=== PATIENT | female | born 1940 | race Caucasian/White ===

== ENCOUNTER 2020-01-15 09:30 | Outpatient (CLI) | payer MEDICARE, SELFPAY ==
[2020-01-15 10:06] LABS: Hematocrit 34.5 % (37.0-47.0); Hemoglobin 11.2 g/dL (12.0-15.0); Immature Reticulocyte Fraction 16.6 % (3.0-15.9); Mean Corpuscular HGB Conc 32.5 g/dl (32-36); Mean Corpuscular Hemoglobin 29.2 pg (26-34); Mean Corpuscular Volume 90.1 fl (80-100); Mean Platelet Volume 10.3 fl (7.4-10.4); Platelet Count Result 366 k/mm3 (150-375); Red Blood Count 3.83 M/mm3 (4.2-5.4); Red Cell Distribution Width 13.8 % (11.5-14.5); Reticulocyte Hemoglobin Conten 31.2 pg (28.2-35.7); Reticulocyte Percent 1.41 % (0.7-4.3); Reticulocytes Absolute 0.05 B/L (32.2-175.7); White Blood Count 5.2 K/mm3 (4.5-10.0)
[2020-01-15 10:21] LABS: Alanine Aminotransferase 19 U/L (4-35); Albumin Level 4.6 g/dL (3.5-5.1); Alkaline Phosphatase 74 U/L (38-126); Anion Gap 11 mmol/L (8-16); Aspartate Amino Transferase 23 U/L (14-36); Bilirubin,Total 0.3 mg/dL (0.2-1.3); Blood Urea Nitrogen 32 mg/dL (7-17); Calcium 9.4 mg/dL (8.4-10.2); Carbon Dioxide 24 mmol/L (22-30); Chloride 103 mmol/L (98-107); Cholesterol 154 mg/dL (0-200); Estimated Glomerular Filt Rate 40; Glucose 98 mg/dL (65-105); HDL Direct 36 mg/dL; Potassium 4.5 mmol/L (3.4-5.0); Sodium 138 mmol/L (137-145); Triglycerides 172 mg/dL (<150)
[2020-01-15 10:31] LABS: LDL Cholesterol Direct 72 mg/dL
== END 2020-01-15 09:31 | disposition home or self-care (01) ==
PROVIDERS: PCP Family Medicine; Visit Provider Nurse Practitioner Family
DX: I10 Essential (primary) hypertension (principal); D64.9 Anemia, unspecified; E78.5 Hyperlipidemia, unspecified
CPT/HCPCS: 36415; 80053; 80061; 82728; 85027; 85046

== ENCOUNTER 2020-07-11 15:01 | Outpatient (CLI) | payer MEDICARE, SELFPAY | END 2020-07-11 15:02 | disposition home or self-care (01) | LOC: ANHCOVIDVC 15:02 | PROVIDERS: PCP Family Medicine | DX: Z23 Encounter for immunization (principal) | CPT/HCPCS: 0001A; 91300 ==

== ENCOUNTER 2020-08-01 14:54 | Outpatient (CLI) | payer MEDICARE, SELFPAY | END 2020-08-01 14:55 | disposition home or self-care (01) | LOC: ANHCOVIDVC 14:54 | PROVIDERS: PCP Family Medicine | DX: Z23 Encounter for immunization (principal) | CPT/HCPCS: 0002A; 91300 ==

== ENCOUNTER 2021-01-23 09:09 | Outpatient (CLI) | payer MEDICARE, SELFPAY ==
[2021-01-23 09:33] LABS: Basophils Absolute Auto 0.1 K/mm3 (0.0-0.1); Basophils Percent Auto 1.4 % (0.2-1.2); Eosinophils Absolute Auto 0.4 K/mm3 (0-0.3); Eosinophils Percent Auto 5.4 % (0-4.4); Immature Granulocyte Absolute 0.04 K/mm3 (0.00-0.031); Immature Granulocyte Percent A 0.6 % (0-0.5); Lymphocytes Absolute Auto 1.45 K/mm3 (0.9-3.2); Lymphocytes Percent Auto 21.8 % (18.3-44.2); Mean Corpuscular HGB Conc 32.4 g/dl (32-36); Mean Corpuscular Hemoglobin 29.9 pg (26-34); Mean Corpuscular Volume 92.3 fl (80-100); Mean Platelet Volume 10.8 fl (7.4-10.4); Monocytes Absolute Auto 0.8 K/mm3 (0.1-0.6); Monocytes Percent Auto 11.4 % (2.6-8.5); Neutrophils Absolute Auto 3.9 K/mm3 (1.3-6.7); Neutrophils Percent Auto 59.4 % (45.5-73.1); Platelet Count Result 286 k/mm3 (150-375); Red Blood Count 4.01 M/mm3 (4.2-5.4); White Blood Count 6.6 K/mm3 (4.5-10.0)
[2021-01-23 09:43] LABS: Alanine Aminotransferase 15 U/L (4-35); Albumin Level 4.6 g/dL (3.5-5.1); Alkaline Phosphatase 73 U/L (38-126); Anion Gap 14 mmol/L (8-16); Aspartate Amino Transferase 23 U/L (14-36); Bilirubin,Total 0.3 mg/dL (0.2-1.3); Blood Urea Nitrogen 36 mg/dL (7-17); Carbon Dioxide 21 mmol/L (22-30); Chloride 105 mmol/L (98-107); Cholesterol 278 mg/dL (0-200); Estimated Glomerular Filt Rate 31; Glucose 105 mg/dL (65-110); HDL Direct 38 mg/dL; Potassium 4.1 mmol/L (3.4-5.0); Sodium 140 mmol/L (137-145); Triglycerides 237 mg/dL (<150)
[2021-01-23 09:54] LABS: LDL Cholesterol Direct 146 mg/dL
[2021-01-23 10:16] LABS: Vitamin D 25 Hydroxy 52.9 ng/mL
== END 2021-01-23 09:10 | disposition home or self-care (01) ==
LOC: ANHLAB 09:12
PROVIDERS: PCP Nurse Practitioner Family; Visit Provider Family Medicine
DX: E78.5 Hyperlipidemia, unspecified (principal); E55.9 Vitamin D deficiency, unspecified; I10 Essential (primary) hypertension; Z00.00 Encounter for general adult medical examination without abnormal findings
CPT/HCPCS: 36415; 80053; 80061; 82306; 84443; 85025

== ENCOUNTER 2021-03-07 12:53 | Outpatient (CLI) | payer MEDICARE, SELFPAY ==
--- NOTE | ~2021-03-07 | DEXA_ITS ---
Bone Density Report Name: Maria Del Carmen Buchanan Age: 80 Sex: Female Ethnicity: White Date of : 1940 Indication: osteopenia; monitoring treatment; height loss; prior fracture; Referring Provider: Mert Wayne Study: Bone densitometry was performed. Exam Date: March 07, 2021 Accession number: [id number] Bone Density: Region BMD T-score Z-score Classification AP Spine (L1, L2) 0.868 -1.0 1.5 Normal Femoral Neck (Left) 0.577 -2.5 -0.2 Osteoporosis Total Hip (Left) 0.681 -2.1 -0.1 Osteopenia Total Hip Bilateral Avg 0.656 -2.3 -0.3 Osteopenia Femoral Neck (Right) 0.550 -2.7 -0.4 Osteoporosis Total Hip (Right) 0.631 -2.6 -0.5 Osteoporosis World Health Organization criteria for BMD impression classify patients as: Normal (T-score at or above -1.0), Osteopenia (T-score between -1.0 and -2.5), or Osteoporosis (T-score at or below -2.5). 10-year Fracture Risk: FRAX not reported because: Some T-score for Spine Total or Hip Total or Femoral Neck at or below -2.5 Treated for osteoporosis Previous Exams: Region Exam Age BMD T-score BMD Change BMD Change Date g/cm2 vs Baseline vs Previous AP Spine(L1, L2) 03/07/2021 80 0.868 -1.0 0.147(20.4%)* 0.079(9.9%)* 01/23/2019 78 0.789 -1.7 0.069(9.5%)* 0.069(9.5%)* 05/24/2016 75 0.721 -2.3 Total Hip(Left) 03/07/2021 80 0.681 -2.1 0.009(1.3%) -0.032(-4.5%)* 01/23/2019 78 0.713 -1.9 0.041(6.0%)* 0.041(6.0%)* 05/24/2016 75 0.672 -2.2 Total Hip(Right) 03/07/2021 80 0.631 -2.6 -0.005(-0.8%) -0.024(-3.7%) 01/23/2019 78 0.654 -2.4 0.019(2.9%) 0.019(2.9%) 05/24/2016 75 0.636 -2.5 *Denotes significance at 95% confidence level, LSC for AP Spine = 0.022 g/cm2, LSC for Total Hip = 0.027 g/cm2 Clinical Information Provided by Patient: Has had a low trauma fracture Is being treated for osteoporosis Has used the following medications: Fosamax (i.e. alendronate), Vitamin D Patient maximum height was 64.5 Menopause Age: 54 No regular weight bearing exercise Does not regularly consume dairy products Onset of menses at age 11 Number of children 2 Impression: The patient has established osteoporosis, based on the Right Femoral Neck T-score and the existence of a prior fracture. The patient has risk factors, including: previous fracture. The BMD for the Total Hip(Left) decreased, changing by -4.5% since the last DXA exam. Discussion: SIGNIFICANT BONE LOSS OBSER
== END 2021-03-07 12:54 | disposition home or self-care (01) ==
PROVIDERS: PCP Nurse Practitioner Family; Visit Provider Family Medicine
DX: Z78.0 Asymptomatic menopausal state (principal); M81.0 Age-related osteoporosis without current pathological fracture; M85.852 Other specified disorders of bone density and structure, left thigh; M85.851 Other specified disorders of bone density and structure, right thigh
CPT/HCPCS: 77080

== ENCOUNTER → 2021-05-25 11:33 | Outpatient (CLI) | payer MEDICARE, SELFPAY ==
--- NOTE | ~2021-05-25 | CT_ITS ---
EXAMINATION: CT lumbar spine wo [facility] EXAM DATE: 05/25/2021 11:49 INDICATION: Lumbar Radiculopathy. Low back and bilateral leg pain. TECHNIQUE: Spiral CT of the lumbar spine was performed without contrast. Axial, coronal and sagittal images lumbar spine were reviewed. The dose-length product (DLP) for this examination was 730.89 mG y-cm. The exposure was tailored according to patient size (auto mA exposure control), and iterative reconstruction (ASIR) was used as additional dose reduction technique. There is no prior study for comparison. FINDINGS: There is moderate lumbar levoscoliosis, with 10 mm left lateral subluxation L3 on L4. No sp ondylolysis. Diffuse abnormal trabeculation to the L4 vertebral body, with both fat and soft tissue d ensity, appearance is most consistent with large hemangioma, with complete loss of cortex posteriorly , mild loss of the posterior vertebral body height. Soft tissue density extending posteriorly from th e vertebral body appears to be causing severe central canal stenosis posterior to the L4 level. No s pondylolysis. There is 3 mm anterolisthesis L5 on S1. Moderate to severe disc disease at from L2 through L5, modera te at L1-2 and L5-S1. Paraspinal soft tissue is unremarkable. No evidence of sacral insufficiency fra cture. Sigmoid colonic diverticulosis. Fluid density right renal lesion incompletely characterized wi thout contrast, measuring 4 cm, a cyst. Rounded incompletely imaged left hilar region which could be patulous extrarenal pelvis. Level by level evaluation: T12-L1: There is a mild to moderate diffuse disc bulge. Facet arthropathy: Mild. Neural foraminal stenosis: No stenosis. Central canal stenosis: Mild. L1-L2: There is a mild to moderate diffuse disc bulge. Facet arthropathy: Mild. Neural foraminal stenosis: No stenosis. Central canal stenosis: Mild. L2-L3: There is a moderate diffuse disc bulge. Facet arthropathy: Mild to moderate. Neural foraminal stenosis: Mild right. Central canal stenosis: Mild. L3-L4: There is a moderate to large diffuse disc bulge. Facet arthropathy: Moderate . Ligamentum flavum enlargement. Neural foraminal stenosis: Moderate right, mild left. Central canal stenosis: Moderate to severe. L4: Probable severe central canal stenosis from bulging posterior soft tissue density from L4 vertebr al body. L4-L5: There is a moderate diffuse disc bulge. Facet arthropathy: Moderate. Neural foraminal stenosis: Moderate to severe left, moderate right. Central canal stenosis: Moderate to severe. L5-S1: There is a moderate diffuse disc bulge. Facet arthropathy: Severe. Neural foraminal stenosis: Moderate to severe left, moderate right. Central canal stenosis: Mild to moderate. IMPRESSION: 1. L4 appearance likely large hemangioma with extraosseous posterior extension causing severe centra l canal stenosis. 2. Moderate lumbar levoscoliosis. 3. Moderate to severe spondylosis. 4. Renal regions incompletely characterized without contrast. Reviewed, dictated and finalized at location A. MANAGER IMPRESSION: 1. L4 appearance likely large hemangioma with extraosseous posterior extension causing severe central canal stenosis. 2. Moderate lumbar levoscoliosis. 3. Moderate to severe spondylosis. 4. Renal regions incompletely characterized without contrast.
== END ==
PROVIDERS: Visit Provider Nurse Practitioner Family
DX: M47.26 Other spondylosis with radiculopathy, lumbar region (principal)
CPT/HCPCS: 72131

== ENCOUNTER 2021-12-18 10:53 | Outpatient (CLI) | payer MEDICARE, SELFPAY ==
[2021-12-18 19:24] LABS: Alanine Aminotransferase 18 U/L (6-35); Albumin Level 4.6 g/dL (3.5-5.1); Alkaline Phosphatase 80 U/L (38-126); Anion Gap 10 mmol/L (8-16); Aspartate Amino Transferase 35 U/L (14-36); Bilirubin,Total 0.4 mg/dL (0.2-1.3); Blood Urea Nitrogen 28 mg/dL (7-17); Calcium 9.5 mg/dL (8.4-10.2); Carbon Dioxide 25 mmol/L (22-30); Chloride 105 mmol/L (98-107); Cholesterol 265 mg/dL (0-200); Estimated Glomerular Filt Rate 60; Glucose 96 mg/dL (65-110); HDL Direct 35 mg/dL; Potassium 4.4 mmol/L (3.4-5.0); Sodium 140 mmol/L (137-145); Triglycerides 224 mg/dL (<150)
[2021-12-18 19:35] LABS: LDL Cholesterol Direct 146 mg/dL
[2021-12-18 20:09] LABS: Basophils Absolute Auto 0.1 K/mm3 (0.0-0.1); Eosinophils Absolute Auto 0.1 K/mm3 (0-0.3); Eosinophils Percent Auto 1.8 % (0-4.4); Hematocrit 40.2 % (37.0-47.0); Hemoglobin 12.9 g/dL (12.0-15.0); Immature Granulocyte Absolute 0.05 K/mm3 (0.00-0.031); Immature Granulocyte Percent A 0.7 % (0-0.5); Lymphocytes Absolute Auto 1.45 K/mm3 (0.9-3.2); Lymphocytes Percent Auto 20.4 % (18.3-44.2); Mean Corpuscular HGB Conc 32.1 g/dl (32-36); Mean Corpuscular Hemoglobin 30.1 pg (26-34); Mean Corpuscular Volume 93.7 fl (80-100); Mean Platelet Volume 11.4 fl (7.4-10.4); Monocytes Absolute Auto 0.7 K/mm3 (0.1-0.6); Monocytes Percent Auto 9.9 % (2.6-8.5); Neutrophils Absolute Auto 4.7 K/mm3 (1.3-6.7); Neutrophils Percent Auto 66.2 % (45.5-73.1); Platelet Count Result 298 k/mm3 (150-375); Red Blood Count 4.29 M/mm3 (4.2-5.4); Red Cell Distribution Width 14.2 % (11.5-14.5); White Blood Count 7.1 K/mm3 (4.5-10.0)
== END 2021-12-18 10:54 | disposition home or self-care (01) ==
LOC: ANHGOSHLAB 10:54
PROVIDERS: PCP Family Medicine; Visit Provider Nurse Practitioner Family
DX: E78.5 Hyperlipidemia, unspecified (principal); I10 Essential (primary) hypertension
CPT/HCPCS: 36415; 80053; 80061; 85025

== ENCOUNTER → 2022-04-12 11:33 | Outpatient (CLI) | payer MEDICARE, SELFPAY ==
--- NOTE | ~2022-04-12 | XR_ITS ---
XR shoulder LT min 2V DATE: 04/12/2022 11:48 INDICATION: Left shoulder pain. No injury. TECHNIQUE: 4 views COMPARISON: None FINDINGS: There is diffuse osteopenia. There is very severe joint space narrowing and prominent spurring at the left glenohumeral joint cons istent with severe osteoarthritis. No fracture or dislocation, periosteal reaction or bone destruction or abnormal soft tissue calcifica tion of the left shoulder. Aortic arch calcification. IMPRESSION: Severe left glenohumeral osteoarthritis Osteopenia Reviewed, dictated and finalized at location B. EW MANAGER
== END ==
PROVIDERS: PCP Family Medicine; Visit Provider Nurse Practitioner Family
DX: M19.012 Primary osteoarthritis, left shoulder (principal); M85.812 Other specified disorders of bone density and structure, left shoulder
CPT/HCPCS: 73030

== ENCOUNTER 2023-01-21 09:06 | Outpatient (CLI) | payer MEDICARE, SELFPAY ==
[2023-01-21 10:21] LABS: Basophils Percent Auto 0.7 % (0.2-1.2); Eosinophils Absolute Auto 0.1 K/mm3 (0-0.3); Hematocrit 42.7 % (37.0-47.0); Hemoglobin 13.7 g/dL (12.0-15.0); Immature Granulocyte Absolute 0.04 K/mm3 (0.00-0.031); Immature Granulocyte Percent A 0.7 % (0-0.5); Lymphocytes Absolute Auto 1.39 K/mm3 (0.9-3.2); Lymphocytes Percent Auto 23.5 % (18.3-44.2); Mean Corpuscular HGB Conc 32.1 g/dl (32-36); Mean Corpuscular Volume 93.4 fl (80-100); Mean Platelet Volume 10.9 fl (7.4-10.4); Monocytes Absolute Auto 0.7 K/mm3 (0.1-0.6); Monocytes Percent Auto 11.3 % (2.6-8.5); Neutrophils Absolute Auto 3.7 K/mm3 (1.3-6.7); Neutrophils Percent Auto 61.8 % (45.5-73.1); Platelet Count Result 314 k/mm3 (150-375); Red Blood Count 4.57 M/mm3 (4.2-5.4); Red Cell Distribution Width 13.4 % (11.5-14.5); White Blood Count 5.9 K/mm3 (4.5-10.0)
[2023-01-21 10:41] LABS: Alanine Aminotransferase 20 U/L (6-35); Albumin Level 4.7 g/dL (3.5-5.1); Alkaline Phosphatase 69 U/L (38-126); Anion Gap 12 mmol/L (8-16); Aspartate Amino Transferase 23 U/L (14-36); Bilirubin,Total 0.5 mg/dL (0.2-1.3); Blood Urea Nitrogen 22 mg/dL (7-17); Calcium 9.8 mg/dL (8.4-10.2); Carbon Dioxide 25 mmol/L (22-30); Chloride 104 mmol/L (98-107); Cholesterol 260 mg/dL (0-200); Estimated Glomerular Filt Rate 60; Glucose 97 mg/dL (65-110); HDL Direct 43 mg/dL; Potassium 3.9 mmol/L (3.4-5.0); Sodium 141 mmol/L (137-145); Triglycerides 138 mg/dL (<150)
[2023-01-21 10:52] LABS: LDL Cholesterol Direct 146 mg/dL
[2023-01-24 14:18] LABS: Vitamin D 1,25 (OH)2 Total 26 pg/mL (18-72); Vitamin D2 1,25 (OH)2 <8 pg/mL; Vitamin D3 1,25 (OH)2 26 pg/mL
== END 2023-01-21 09:07 | disposition home or self-care (01) ==
PROVIDERS: PCP Nurse Practitioner Family; Visit Provider Nurse Practitioner Family
DX: E78.5 Hyperlipidemia, unspecified (principal); E55.9 Vitamin D deficiency, unspecified; I12.9 Hypertensive chronic kidney disease with stage 1 through stage 4 chronic kidney disease, or unspecified chronic kidney disease; N18.30 Chronic kidney disease, stage 3 unspecified
CPT/HCPCS: 36415; 80053; 80061; 82652; 85025

== ENCOUNTER 2023-12-31 10:45 | Outpatient (CLI) | payer MEDICARE, SELFPAY ==
[2023-12-31 11:37] LABS: Basophils Absolute Auto 0.1 K/mm3 (0.0-0.1); Basophils Percent Auto 0.7 % (0.2-1.2); Eosinophils Absolute Auto 0.1 K/mm3 (0-0.3); Eosinophils Percent Auto 1.7 % (0-4.4); Hemoglobin 12.6 g/dL (12.0-15.0); Immature Granulocyte Absolute 0.05 K/mm3 (0.00-0.031); Immature Granulocyte Percent A 0.7 % (0-0.5); Lymphocytes Absolute Auto 1.58 K/mm3 (0.9-3.2); Lymphocytes Percent Auto 22.8 % (18.3-44.2); Mean Corpuscular HGB Conc 31.5 g/dl (32-36); Mean Corpuscular Hemoglobin 29.2 pg (26-34); Mean Corpuscular Volume 92.6 fl (80-100); Mean Platelet Volume 10.8 fl (7.4-10.4); Monocytes Absolute Auto 0.7 K/mm3 (0.1-0.6); Monocytes Percent Auto 10.4 % (2.6-8.5); Neutrophils Absolute Auto 4.4 K/mm3 (1.3-6.7); Neutrophils Percent Auto 63.7 % (45.5-73.1); Platelet Count Result 283 k/mm3 (150-375); Red Blood Count 4.32 M/mm3 (4.2-5.4); Red Cell Distribution Width 13.7 % (11.5-14.5); White Blood Count 6.9 K/mm3 (4.5-10.0)
[2023-12-31 11:43] LABS: Add Urine Microscopic? YES; Appearance Urine Cloudy (Clear); Bacteria Urine None Seen /hpf; Bilirubin Urine Negative (Negative); Blood Urine Negative (Negative); Color Urine Yellow (Yellow); Glucose Urine UA Negative (Negative); Ketones Urine Negative (Negative); Leukocyte Esterase Ur Negative LEU/UL (Negative); Nitrate Urine Negative (Negative); Non Pathogenic Casts 0-2; Protein Urine Negative (Negative); RBC Urine 0-2 /hpf (0-2); Specific Grav Ur 1.026 (1.001-1.035); Squamous Epithelial Cell Urine None Seen /hpf (Few); Urobilinogen Urine 0.2 mg/dL (<2.0); WBC Urine 0-5 /hpf (0-3); pH Urine 5.5 (5.0-9.0)
[2023-12-31 11:50] LABS: Alanine Aminotransferase 21 U/L (6-35); Albumin Level 4.4 g/dL (3.5-5.1); Alkaline Phosphatase 65 U/L (38-126); Anion Gap 12 mmol/L (4-12); Aspartate Amino Transferase 24 U/L (14-36); Bilirubin,Total 0.6 mg/dL (0.2-1.3); Blood Urea Nitrogen 25 mg/dL (7-17); CRP 0.6 mg/dL (<1.0); Calcium 9.2 mg/dL (8.4-10.2); Carbon Dioxide 22 mmol/L (22-30); Chloride 107 mmol/L (98-107); Estimated Glomerular Filt Rate 60; Glucose 88 mg/dL (65-110); Sodium 141 mmol/L (137-145)
[2023-12-31 12:15] LABS: Erythrocyte Sedimentation Rate 38 mm/hr (0-20)
== END 2023-12-31 10:46 | disposition home or self-care (01) ==
LOC: ANHLAB 10:49
PROVIDERS: PCP Family Medicine; Visit Provider Nurse Practitioner Family
DX: Z01.818 Encounter for other preprocedural examination (principal)
CPT/HCPCS: 36415; 80053; 81001; 85025; 85652; 86140

== ENCOUNTER 2024-06-12 11:27 | Outpatient (CLI) | payer MEDICARE, SELFPAY ==
[2024-06-12 13:38] LABS: Basophils Absolute Auto 0.1 K/mm3 (0.0-0.1); Basophils Percent Auto 0.9 % (0.2-1.2); Eosinophils Absolute Auto 0.1 K/mm3 (0-0.3); Eosinophils Percent Auto 0.9 % (0-4.4); Hematocrit 42.6 % (37.0-47.0); Hemoglobin 13.7 g/dL (12.0-15.0); Immature Granulocyte Absolute 0.04 K/mm3 (0.00-0.031); Immature Granulocyte Percent A 0.6 % (0-0.5); Lymphocytes Absolute Auto 1.44 K/mm3 (0.9-3.2); Lymphocytes Percent Auto 22.6 % (18.3-44.2); Mean Corpuscular HGB Conc 32.2 g/dl (32-36); Mean Corpuscular Hemoglobin 30.5 pg (26-34); Mean Corpuscular Volume 94.9 fl (80-100); Mean Platelet Volume 11.2 fl (7.4-10.4); Monocytes Absolute Auto 0.6 K/mm3 (0.1-0.6); Monocytes Percent Auto 8.6 % (2.6-8.5); Neutrophils Absolute Auto 4.2 K/mm3 (1.3-6.7); Neutrophils Percent Auto 66.4 % (45.5-73.1); Platelet Count Result 318 k/mm3 (150-375); Red Blood Count 4.49 M/mm3 (4.2-5.4); Red Cell Distribution Width 13.6 % (11.5-14.5); White Blood Count 6.4 K/mm3 (4.5-10.0)
[2024-06-12 13:43] LABS: Alanine Aminotransferase 17 U/L (6-35); Albumin Level 4.6 g/dL (3.5-5.1); Alkaline Phosphatase 94 U/L (38-126); Anion Gap 12 mmol/L (4-12); Aspartate Amino Transferase 26 U/L (14-36); Bilirubin,Total 0.7 mg/dL (0.2-1.3); Blood Urea Nitrogen 18 mg/dL (7-17); Carbon Dioxide 24 mmol/L (22-30); Chloride 106 mmol/L (98-107); Cholesterol 242 mg/dL (0-200); Estimated Glomerular Filt Rate > 60; Glucose 105 mg/dL (65-110); HDL Direct 45 mg/dL; Sodium 142 mmol/L (137-145); Triglycerides 175 mg/dL (<150)
[2024-06-12 13:51] LABS: Vitamin D 25 Hydroxy 38.6 ng/mL
[2024-06-12 14:02] LABS: LDL Cholesterol Direct 154 mg/dL
[2024-06-12 14:04] LABS: Thyroid Stimulating Hormone Reflex 0.677 uIU/mL (0.465-4.68)
== END 2024-06-12 11:28 | disposition home or self-care (01) ==
LOC: ANHGOSHLAB 11:27
PROVIDERS: PCP Family Medicine; Visit Provider Nurse Practitioner Family
DX: E78.5 Hyperlipidemia, unspecified (principal); I10 Essential (primary) hypertension; E55.9 Vitamin D deficiency, unspecified
CPT/HCPCS: 36415; 80053; 80061; 82306; 84443; 85025

== ENCOUNTER 2024-09-22 10:29 | Outpatient (CLI) | payer MEDICARE, SELFPAY ==
--- NOTE | ~2024-09-22 | MR_ITS ---
MRI of the brain Clinical History: Vertigo Technique: Axial and sagittal T1-weighted images were acquired. These were followed by axial T2-weigh leoncio, diffusion weighted, gradient, and FLAIR images. Thin cut axial and coronal T1-weighted and T2-we ighted images were performed through the internal auditory canals. Following intravenous administrati on of 14 cc ProHance gadolinium, T1-weighted fat-sat imaging was performed through the brain in the a xial and coronal planes. Thin cut T1-weighted postcontrast imaging was performed through the internal auditory canals in the axial and coronal planes. Findings: There is no acute infarct, acute intracranial hemorrhage, or mass lesion. Small foci of low signal on gradient images present in the right cerebellum and in the left thalamus, compatible with prior microhemorrhage. There is extensive chronic white matter disease on FLAIR images, compatible wi th severe chronic microvascular ischemic change. Ventricles and subarachnoid spaces are mildly dilated. Orbits are unremarkable. Paranasal sinuses and mastoid air cell are clear. Major intracranial flow voids are intact. Sagittal midline structures are intact. No abnormal mass lesion seen at the internal auditory canals or CP angle regions. No abnormal postcontrast enhancement evident. IMPRESSION: Severe chronic vascular ischemic change and mild to moderate atrophy. Probable tiny remote microhemor rhages in the right cerebellum and left thalamus. No abnormal mass lesion of the internal auditory canals or CP angle regions identified. Reviewed, dictated and finalized at [facility]. IMPRESSION: Severe chronic vascular ischemic change and mild to moderate atrophy. Probable tiny remote microhemorrhages in the right cerebellum and left thalamus. No abnormal mass lesion of the internal auditory canals or CP angle regions barrie ntified.
--- OUTSIDE RECORDS SUMMARY | 2024-09-22 10:46 | XMS_ITS | Encounter Summary ---
Author Organization [facility] Address [facility] [place] [address] Care Team Providers Care Exhaust Emissions Automotive Technician Name Role Phone Unavailable Primary Care Provider Unavailabl e Encounter Details Date Type Department Care Team (Latest Contact Info) Description 03/18/2018 Abstract [facility] , Generic Conversion, Social History Tobacco Use Types Packs/Day Years Used Date Smoking Tobacco: Never Assessed Comments Unknown Sex and Gender Information Value Date Recorded Sex Assigned at Not on file Legal Sex Female 9:52 PM CDT Gender Identity Not on file Sexual Orientation Not on file documented as of this encounter Plan of Treatment Not on file documented as of this encounter Visit Diagnoses Not on filedocumented in this encounter
--- OUTSIDE RECORDS SUMMARY | 2024-09-22 10:46 | XMS_ITS | Clinical Summary ---
Author Organization [facility] [address] [place] [address] Care Team Providers Care Tip Inserter Name Role Phone No, Physician Primary Care Provider [phone] Allergies No known active allergies Medications amLODIPine (NORVASC) 10 mg tablet Take 10 mg by mouth daily 0 Active ezetimibe (ZETIA) 10 mg tablet Take 1 tablet (10 mg total) by mouth daily 0 Active gabapentin (NEURONTIN) 100 mg capsule 0 Active latanoprost (XALATAN) 0.005 % ophthalmic solution 0 Active Myrbetriq 25 mg tablet extended release 24 hr 0 Active Bystolic 10 mg tablet Take 1 tablet (10 mg total) by mouth daily 0 Active ascorbic acid (VITAMIN C) 1,000 mg tablet Take 1 tablet (1,000 mg total) by mouth daily Active iron 18 mg tablet Take 65 mg by mouth Active fish oil-dha-epa 1,200-144-216 mg capsule Take by mouth Activ e glucosamine HCl 500 mg tablet Take 2 tablets by mouth Active timolol maleate 0.5 % drops, once daily Administer into affected eye(s) Active alendronate (FOSAMAX) 10 mg tablet Take 1 tablet (10 mg total) by mouth daily before breakfast Take in the morning with a full glass of water, on an empty stomach, and do not take anything else by mouth or lie down for the next 30 min. Active fluticasone propionate (FLONASE) 50 mcg/actuation nasal sprayIndication s:Non-seasonal allergic rhinitis due to pollen Administer 2 sprays into each nostril daily 48 g 3 1 Active losartan (COZAAR) 100 mg tablet Take 1 tablet (100 mg total) by mouth daily 5 Active cholecalciferol 400 unit capsule Active acetaminophen-c odeine (TYLENOL w/ CODEINE) solution 300-30 mg/12.5 mL Take by mouth as needed for pain Active chlorpheniramin e-phenylephrine 4-10 mg per tablet Take 1 tablet by mouth every 4 (four) hours as needed for congestion Active guaiFENesin (ROBITUSSIN) 400 mg tablet Take 1 tablet (400 mg total) by mouth Active mecobalamin (B12 ACTIVE ORAL) Take by mouth Active triamcinolone (KENALOG) 0.1 % pasteIndication s:Oral lesion Apply to oral lesions TID x 10 days then PRN 5 g 1 5 Active Active Problems Problem Noted Date Diagnosed Date Oral lesion 08/29/2024 Chronic eczematous otitis externa of left ear Dysfunction of left eustachian tube 08/06/2024 Mixed conductive and sensori neural hearing loss of left ear with restricted hearing of right ear 08/06/2024 Non-seasonal allergic rhinitis due to pollen Deviated nasal septum 10/01/2019 Sensorineural hearing loss (SNHL) of both ears 0 10/01/2019 Tinnitus of both ears 10/01/2019 Encounters Date Type Department Care Team Description 08/27/2024 4:15 PM CDT Office Visit [facility] Otolaryngology [address] [place] [phone] Tomi Tellez II, MD Oral lesion (Primary Dx); Chronic eczematous otitis externa of left ear 08/06/2024 2:15 PM CDT Office Visit [facility] Otolaryngology [address] [place] [phone] Tomi Tellez II, MD Dysfunction of left eustachian tube (Primary Dx); Mixed conductive and sensorineural hearing loss of left ear with restricted hearing of right ear 08/06/2024 1:45 PM CDT Procedure visit [facility] Otolaryngology [address] [place] [phone] Pradeep Sara Jocelyn Sensorineural hearing loss, asymmetrical (Primary Dx); Sensorineural hearing loss (SNHL) of both ears from Last 3 Months Surgical History Surgery Date Site/Laterality Comments THYROID SURGERY cyst removed TYMPANOSTOMY TUBE PLACEMENT 08/27/2024 Left Medical History Medical History Date Comments Hearing loss Otitis externa GERD (gastroesophageal reflux disease) Rhinitis Hyperlipemia Hypertension Arthritis Cataract Glaucoma Allergic rhinitis Tinnitus Other lesions of oral mucosa Family History Medical History Relation Name Comments Hypertension Maternal Grandmother Allergies Other Relation Name Status Comments Maternal Grandmother Other Social History Tobacco Use Types Packs/Day Years Used Date Smoking Tobacco: Never Smokeless Tobacco: Never Alcohol Use Standard Drinks/Week Comments Never 0 (1 standard drink = 0.6 oz pur e alcohol) AUDIT-C Answer Date Recorded Q1: How often do you have a drink containing alc ohol? 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 Gender Identity Not on file Sexual Orientation Not on file Obstetrics History Last Filed Vital Signs Vital Sign Reading Time Taken Comments Blood Pressure - - Pulse - - Temperature 36.8 C (98.3 F) 10/01/2019 3:51 PM CDT Respiratory Rate 18 08/27/2024 4:13 PM CDT Oxygen Saturation - - Inhaled Oxygen Concentration - - Weight 65.8 kg (145 lb) 08/27/2024 4:13 PM CDT Height 154.9 cm (5' 1 ) 08/27/2024 4:13 PM CDT Body Mass Index 27.4 08/27/2024 4:13 PM CDT Plan of Treatment Health Maintenance Due Date Last Done Comments Depression Screening 1940 Fall Risk Assessment 1940 Osteoporosis Screening-Bone Density Scan 1940 Hepatitis B Screening 12/05/1959 Zoster Vaccine (1 of 2) 12/05/1991 Well Visit 65+ 2006 Influenza Vaccine (Season Ended) 2025 03/24/2019, 03/10/2018, 05/17/2017, Additional history exists DTaP/Tdap/Td Vaccine (2 - Td or Tdap) 10/25/2027 10/24/2017 Pneumococcal vaccine 65+ Completed 020, 04/28/2018, 05/13/2016, Additional history exists Insurance [facility] MEDICARE ADVANTAGE Care Teams Tip Inserter Relationship Specialty Start Date End Date No, Physician PCP - General 08/31/24
--- OUTSIDE RECORDS SUMMARY | 2024-09-22 10:46 | XMS_ITS | Clinical Summary ---
Author Organization [facility] Address [facility] [place] [address] Care Team Providers Care Grounds Supervisor Name Role Phone Unavailable Primary Care Provider Unavailabl e Social History Tobacco Use Types Packs/Day Years Used Date Smoking Tobacco: Never Assessed Comments Unknown Sex and Gender Information Value Date Recorded Sex Assigned at Not on file Legal Sex Female 9:52 PM CDT Gender Identity Not on file Sexual Orientation Not on file Last Filed Vital Signs Vital Sign Reading Time Taken Comments Blood Pressure 150/84 08/10/2013 1:11 PM CDT Pulse 84 08/10/2013 1:11 PM CDT Temperature - - Respiratory Rate - - Oxygen Saturation - - Inhaled Oxygen Concentration - - Weight 68.9 kg (152 lb) 08/10/2013 1:11 PM CDT Height 162.6 cm (5' 4 ) 08/10/2013 1:11 PM CDT Body Mass Index 26.09 08/10/2013 1:11 PM CDT Plan of Treatment Health Maintenance Due Date Last Done Comments DTaP, Tdap and Td Vaccines ( 1 - Tdap) 1960 Pneumococcal Vaccine: 50+ Ye ars (1 of 1 - PCV) 12/05/1991 Zoster Vaccines (1 of 2) 12/05/1991 Dexa Scan (General) 2006 RSV Immunization or 60+ Years (1 - 1-dose 75+ series) 2016 COVID-19 Vaccine (2023-2 5 season) 2024 Meningococcal B Vaccine Aged Out No l onger eligible based on patient's age to complete this topic Meningococcal Vaccine Aged Out No geo chester eligible based on patient's age to complete this topic RSV Immunizations Under 20 Months Aged Out No longer eligible based on patient's age to complete this topic
--- OUTSIDE RECORDS SUMMARY | 2024-09-22 10:46 | XMS_ITS | Referral Summary ---
Author Organization [address] Address [address] [place] [id number] Care Team Providers Care Lanolin Plant Operator Name Role Phone No, Physician Primary Care Provider [phone] Encounters Date Type Department Care Team Description 08/27/2024 4:15 PM CDT Office Visit [facility] Otolaryngology [address] [place] [phone] Tomi Tellez II, MD Oral lesion (Primary Dx); Chronic eczematous otitis externa of left ear 08/06/2024 1:45 PM CDT Procedure visit [facility] Otolaryngology [address] [place] [phone] Sara Fernández Sensorineural hearing loss, asymmetrical (Primary Dx); Sensorineural hearing loss (SNHL) of both ears 08/06/2024 2:15 PM CDT Office Visit [facility] Otolaryngology [address] [place] [phone] Tomi Tellez II, MD Dysfunction of left eustachian tube (Primary Dx); Mixed conductive and sensorineural hearing loss of left ear with restricted hearing of right ear from Last 3 Months Allergies No known active allergies Medications amLODIPine [...] 0 10/01/2019 Tinnitus of both ears 10/01/2019 Social History Tobacco Use Types Packs/Day Years [...] on file 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
== END 2024-09-22 10:30 | disposition home or self-care (01) ==
PROVIDERS: PCP Family Medicine; Visit Provider Otolaryngology
DX: I67.82 Cerebral ischemia (principal); G31.9 Degenerative disease of nervous system, unspecified
CPT/HCPCS: 70553; A9579

== ENCOUNTER 2025-01-08 11:23 | Outpatient (CLI) | payer MEDICARE, SELFPAY ==
--- OUTSIDE RECORDS SUMMARY | 2025-01-08 11:27 | XMS_ITS | Clinical Summary ---
Author Organization [facility] [address] Address [address] [place] [place] [address] Care Team Providers Care Speech Instructor Name Role Phone No, Physician Primary Care Provider [phone] Allergies No known active allergies Medications amLODIPine [...] Encounters Date Type Department Care Team Description 10/22/2024 2:45 PM CDT Office Visit [facility] Otolaryngology [address] [place] [phone] Tomi Tellez II, MD Mixed conductive and sensorineural hearing loss of left ear with restricted hearing of right ear (Primary Dx) 10/22/2024 2:15 PM CDT Procedure visit [facility] Otolaryngology [address] [place] [phone] Rubina Gauthier Au.D. 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 Gender Identity Not on file Sexual Orientation Not on file Obstetrics History Last Filed Vital Signs Vital Sign Reading Time Taken Comments Blood Pressure - - Pulse - - Temperature 36.8 C (98.3 F) 10/01/2019 3:51 PM CDT Respiratory Rate 18 10/22/2024 2:49 PM CDT Oxygen Saturation - - Inhaled Oxygen Concentration - - Weight 65.8 kg (145 lb) 10/22/2024 2:49 PM CDT Height 154.9 cm (5' 1) 10/22/2024 2:49 PM CDT Body Mass Index 27.4 10/22/2024 2:49 PM CDT Plan of Treatment Health Maintenance Due Date Last Done Comments Depression Screening 1940 Fall Risk Assessment 1940 Osteoporosis Screening-Bone Density Scan 1940 Hepatitis B Screening 12/05/1958 Zoster Vaccine (1 of 2) 12/05/1991 Well Visit 65+ 2006 Influenza Vaccine (#1) 2025 9, 03/10/2018, 05/17/2017, Additional history exists DTaP/Tdap/Td Vaccine (2 - Td or Tdap) 10/25/2027 10/24/2017 Pneumococcal vaccine 65+ Completed 020, 04/28/2018, 05/13/2016, Additional history exists Insurance [facility] MEDICARE ADVANTAGE [facility] MED[facility] Address: [address] [address] Care Teams Speech Instructor Relationship Specialty Start Date End Date No, Physician PCP - General 08/31/24
[2025-01-08 12:01] LABS: Hematocrit 40.1 % (37.0-47.0); Hemoglobin 12.9 g/dL (12.0-15.0); Immature Granulocyte Percent A 0.6 % (0-0.5); Lymphocytes Absolute Auto 1.91 K/mm3 (0.9-3.2); Mean Corpuscular HGB Conc 32.2 g/dl (32-36); Mean Corpuscular Hemoglobin 29.4 pg (26-34); Mean Corpuscular Volume 91.3 fl (80-100); Nucleated Red Blood Cells Absolute Auto 0.000 K/mm3 (0.0-0.012); Nucleated Red Blood Cells Perc 0.0 % (0.0-0.2); Platelet Count Result 292 k/mm3 (150-375); Red Blood Count 4.39 M/mm3 (4.2-5.4); White Blood Count 7.2 K/mm3 (4.5-10.0)
[2025-01-08 12:25] LABS: Alanine Aminotransferase 23 U/L (6-35); Albumin Level 4.5 g/dL (3.5-5.1); Alkaline Phosphatase 76 U/L (38-126); Anion Gap 9 mmol/L (4-12); Aspartate Amino Transferase 28 U/L (14-36); Bilirubin,Total 0.6 mg/dL (0.2-1.3); Blood Urea Nitrogen 21 mg/dL (7-17); Calcium 9.5 mg/dL (8.4-10.2); Carbon Dioxide 23 mmol/L (22-30); Chloride 107 mmol/L (98-107); Cholesterol 235 mg/dL (0-200); Estimated Glomerular Filt Rate 57; Glucose 91 mg/dL (65-110); HDL Direct 35 mg/dL; Potassium 4.3 mmol/L (3.4-5.0); Sodium 139 mmol/L (137-145); Total Protein 7.8 g/dL (6.3-8.2); Triglycerides 257 mg/dL (<150)
[2025-01-08 12:57] LABS: Thyroid Stimulating Hormone Reflex 1.580 uIU/mL (0.465-4.68)
== END 2025-01-08 11:24 | disposition home or self-care (01) ==
PROVIDERS: PCP Nurse Practitioner Family; Visit Provider Nurse Practitioner Family
DX: E78.5 Hyperlipidemia, unspecified (principal); I10 Essential (primary) hypertension; E55.9 Vitamin D deficiency, unspecified
CPT/HCPCS: 36415; 80053; 80061; 82306; 84443; 85025